=== PATIENT | female | born 1990 | race African-American/Black ===

== ENCOUNTER → 2023-09-09 11:41 | Outpatient (REF) | payer OTHER, SELFPAY ==
[2023-09-09 13:13] LABS: Rubella Positive
[2023-09-09 13:42] LABS: Hepatitis B Surface Antibody Positive
[2023-09-11 10:41] LABS: Quantiferon Mitogen minus NIL >10.00 IU/mL; Quantiferon NIL 0.02 IU/mL; Quantiferon TB Gold Plus Negative (Negative)
[2023-09-15 15:57] LABS: Mumps Virus IgG Positive; Rubeola (Measles) IgG Negative; Varicella Zoster IgG (VZV) Positive
== END ==
LOC: OHS 11:41
PROVIDERS: ATTENDING PHYSICIAN Nurse Practitioner Family
DX: Z23 Encounter for immunization (principal)
CPT/HCPCS: 36415; 86480; 86706; 86735; 86762; 86765; 86787

== ENCOUNTER 2024-07-24 12:59 | Emergency (ER) | payer OTHER, SELFPAY ==
[2024-07-24 13:40] VITALS: BP 113/76
[2024-07-24 14:05] LABS: % Basophils 0.7 % (0-2); % Eosinophils 0.1 % (0-6); % Immature Granulocytes 0.4 % (0-0.5); % Lymphocytes 9.6 % (20.5-51.1); % Monocytes 13.3 % (1.7-9.3); % Neutrophils 75.9 % (42.2-75.2); Absolute Basophils 0.1 10^3/uL (0-0.2); Absolute Lymphocytes 0.7 10^3/uL (1.2-3.4); Absolute Neutrophils 5.7 10^3/uL (1.4-6.5); Hematocrit 23.8 % (37.0-47.0); Hemoglobin 7.1 g/dL (12.0-16.0); Mean Corp Hgb Conc. 29.8 g/dL (33.0-37.0); Mean Corpuscular Hgb 17.5 pg (27.0-31.0); Mean Corpuscular Volume 58.8 fL (81.0-99.0); Mean Platelet Volume 9.3 fL (7.4-10.4); Nucleated Red Blood Cells % 0.3 %; Platelet Count 364 10^3/uL (130-400); Red Blood Cell Count 4.05 10^6/uL (4.20-5.40); Red Cell Dist. Width 20.7 % (11.5-14.5); Urine Albumin Trace (Neg - Trace); Urine Bilirubin Negative (Negative); Urine Character Slightly Cloudy (Clear); Urine Color Yellow; Urine Glucose Negative (Negative); Urine Ketone Trace (Negative); Urine Leukocyte 2+ (Negative); Urine Nitrite Negative (Negative); Urine Occult Blood Negative (Negative); Urine Urobilinogen Negative (Neg - 1+); White Blood Cell Count 7.5 10^3/uL (4.8-10.8)
[2024-07-24 14:15] LABS: Lactic Acid 1.3 mmol/L (0.7-2.0)
[2024-07-24 14:27] LABS: ALT (SGPT) 18 U/L (0-35); AST (SGOT) 27 U/L (14-36); Albumin 4.4 g/dl (3.5-5.0); Alkaline Phosphatase 65 U/L (38-126); Blood Urea Nitrogen 8 mg/dl (7-17); Calcium 8.8 mg/dl (8.4-10.2); Carbon Dioxide 16 mmol/L (22-30); Chloride 103 mmol/L (98-107); Glucose 114 mg/dl (70-99); Potassium 3.8 mmol/L (3.5-5.1); Sodium 132 mmol/L (135-145); Total Bilirubin 0.3 mg/dl (0.2-1.3); Total Protein 7.5 g/dl (6.3-8.2); eGFR > 60.00
[2024-07-24 14:29] LABS: COVID-19 Antigen Negative (Negative)
[2024-07-24 14:31] VITALS: BP 122/75
[2024-07-24 14:35] LABS: HCG, Serum Qualitative Screen Negative
[2024-07-24 14:38] LABS: Urine Mucus Few; Urine Squamous Cell >30 /LPF (Few)
[2024-07-24 14:39] LABS: Urine Amorphous Seen; Urine Red Blood Cell 0-2 /HPF (0-2)
[2024-07-24 14:41] LABS: Urine Bacteria Few (Negative)
[2024-07-24 14:52] LABS: APTT 28.8 Sec (23.4-35.0); INR 1.19; PT 15.4 Sec (11.4-14.6)
[2024-07-24 15:04] VITALS: BMI 25.4
--- NOTE | 2024-07-24 15:34 | ED.GENMED ---
History of Present Illness
General
Chief Complaint: Fever
Source: patient
Exam Limitations: none
Time Seen by Provider: 07/24/24 15:17
Nursing documentation reviewed up to this point in time: agreed with
History of Present Illness
History of Present Illness:
34-year-old female presents emergency room complaining of cough, back pain, headache and dysuria. This has been going on since yesterday. She notes she did get a flu shot. She took Tylenol this morning helped a little.
Past History
Past History
ED Past Medical History: Other (Uterine fibroids)
ED Past Surgical History: None
Social History
Tobacco: Non-smoker
Alcohol: None
Drug: None
Review of Systems
Review of Systems
Allergies reviewed?: Yes
All Other Systems: Not applicable
Constitutional: Reports fever
EENT: Reports no symptoms
Respiratory: Reports cough and trouble breathing
Cardiac: Reports no symptoms
ABD/GI: Reports vomiting
: Reports dysuria
Musculoskeletal: Reports back pain
Skin: Reports no symptoms
Neurological: Reports no symptoms
Endocrine: Reports no symptoms
Hematologic/Lymphatic: Reports no symptoms
Psychiatric: Reports no symptoms
Phy Exam
Physical Exam
Physical Exam:
Physical Exam
General: Fever 101.8
Neck: supple. no meningeal signs. normal posterior pharynx
Heart: s1/s2 tachycardia, no murmur. equal radial
pulses.
HEENT: Pupils equal round reactive to light, EOMI
Lungs: no acute respiratory distress. clear bilaterally, cough
Abdomen: normal bowel sounds. not tender. no CVAT
Neuro: alert and oriented. no focal neurological deficits cranial nerves II through XII intact
Skin: no rash
Psychiatric: well kept. interactive and cooperative
Extremities: no edema. no calf tenderness. negative homans. good distal pulses
Sepsis
Sepsis Screening
Sepsis Assessment: Sepsis Ruled Out
Sepsis Screen
Sepsis Screen: Sepsis Ruled Out
Date: 07/24/24
Time: 23:41
Course
Orders/Labs/Results
Orders:
Orders
07/24/24 13:44
Electrocardiogram (*1) Urgent
Reason for Study: Tachycardia
CR Chest - 2 Views Urgent
Comment:
Reason For Exam: cough, fever
07/24/24 13:45
EKG- Treatment ONCE
Test Result ONCE
07/24/24 13:52
COVID-19 Antigen Urgent
Source: Nasal Swab
Complete Blood Count/With Diff Urgent
Comprehensive Metabolic Panel Urgent
HCG, Serum Qualitative Screen Urgent
Lactic Acid Urgent
Urinalysis Reflex To Culture Urgent
Date Specimen was Collected: 07/24/24
Time Specimen was Collected: 13:44
Urine Microscopic Reflex Cult Urgent
Influenza A+B Rapid Molecular Urgent
CYNTHIA Source: Nasal Swab
Specimen Description:
Date Specimen was Collected: 07/24/24
Time Specimen was Collected: 13:44
Urine Culture Urgent
CYNTHIA Source: U
Specimen Description:
Date Specimen was Collected: 07/24/24
Time Specimen was Collected: 13:44
07/24/24 14:36
ABO2 Urgent
[employer] W[employer] Number:
Associate notified that ABO2 has been ordered: [id number]
Date: 07/24/24
Time: 14:54
Crimper Assembler ID: [id number]
INR [Prothrombin Time] Urgent
PTT Urgent
07/24/24 15:03
Type+Screen Urgent
BBK Wristband Number:
07/24/24 15:33
Ibuprofen [Motrin] 600 mg PO NOW STA
Ondansetron Orally Disint [Zofran Odt (Orally Disintegrating)] 4 mg PO NOW STA
07/24/24 15:43
Lactated Ringers [Lr] 1,000 ml IV BOLUS
Ondansetron Injectable [Zofran] 4 mg IV NOW STA
07/24/24 15:50
Urinalysis Reflex To Culture Urgent
Date Specimen was Collected: 07/24/24
Time Specimen was Collected: 15:44
07/24/24 16:56
Basic Metabolic Panel Urgent
07/24/24 18:08
Sodium Bicarbonate 650 mg PO NOW STA
Abnormal Lab Results
07/24/24 07/24/24 07/24/24
13:52 14:36 16:56
RBC 4.05 L 10^6/uL
(4.20-5.40)
Hgb 7.1 L g/dL
(12.0-16.0)
Hct 23.8 L %
(37.0-47.0)
MCV 58.8 L fL
(81.0-99.0)
MCH 17.5 L pg
(27.0-31.0)
MCHC 29.8 L g/dL
(33.0-37.0)
RDW 20.7 H %
(11.5-14.5)
Absolute Lymphs (auto) 0.7 L 10^3/uL
(1.2-3.4)
Absolute Monos (auto) 1.0 H 10^3/uL
(0.1-0.6)
Neutrophils % 75.9 H %
(42.2-75.2)
Lymphocytes % 9.6 L %
(20.5-51.1)
Monocytes % 13.3 H %
(1.7-9.3)
PT 15.4 H Sec
(11.4-14.6)
Sodium 132 L mmol/L 133 L mmol/L
(135-145) (135-145)
Carbon Dioxide 16 L mmol/L 15 L mmol/L
(22-30) (22-30)
BUN 6 L mg/dl
(7-17)
Glucose 114 H mg/dl
(70-99)
Urine Ketones Trace A
(Negative)
Leukocyte Esterase Rfl 2+ A
(Negative)
Urine Bacteria (Reflex) Few A
(Negative)
07/24/24 13:52
07/24/24 16:56
Vital Signs
Initial and Last Documented VS:
Initial Vital Signs
Temp Pulse Resp BP Pulse Ox
102.7 F H 141 16 113/76 100
07/24/24 13:40 07/24/24 13:40 07/24/24 13:40 07/24/24 13:40 07/24/24 13:40
Last Documented Vital Signs
Temp Pulse Resp BP Pulse Ox
100.5 F H 102 18 125/78 100
07/24/24 15:19 07/24/24 18:15 07/24/24 18:15 07/24/24 18:00 07/24/24 18:15
MDM/Problems Addressed
Differential Diagnosis Includes:
Metabolic acidosis, anemia, flu
MDM/Problems Addressed:
34-year-old female with influenza A, mild metabolic acidosis, iron deficiency anemia. Patient treated with sodium bicarbonate, will follow-up with primary care for repeat labs, blood transfusion not indicated at this time
Chronic conditions affecting care: Other (Anemia)
*Radiology
Radiology exam reviewed: radiology read reviewed (Chest x-ray no acute findings)
*Pulse Oximetry
Patient hypoxic: no
*EKG
Interpreted by ED Provider?: Yes
EKG Intrepretation Date: 07/24/24
EKG Intrepretation Time: 13:58
Interpretation: abnormal
Comparison EKG: no comparison EKG present
Heart Rate: 124
Rate: tachycardiac
Rhythm: sinus tachycardia
[place]: normal axis
Interval: normal interval
QRS Pattern: normal QRS
Ischemia: no ischemia
*Tempering Oven Operator Interpretation
Rate: tachycardiac
Interpretation: abnormal
Heart Rate: 125
Rhythm: sinus tachycardia
*Critical Care Note
Total Time (30-74mins, 75-104mins- exclusive of procedures): Not Applicable
Data Reviewed
Review of Other/Old Records Reveals: Labs (Patient's prior hemoglobin 8.1)
Source: patient
Patient Management
Social determinants of health affecting care: Living situation and Strong social support
Discussion with other providers: [employer] Loading Machine Operator (Discussed results of metabolic panel with nephrology, who recommended sodium bicarbonate. Dr. Pereyra)
Escalation/DeEscalation of care consider admission/obs:
admit not indicated
ED Attending Note
-
Portions of this chart may have been created with voice recognition software.� Occasional wrong word or��sound alike� substitutions may have occurred due to the inherent limitations of voice recognition software.
Discharge Plan
Departure
Patient Disposition: Home (Routine Discharge)
Date of Disposition: 07/24/24
Time of Disposition: 18:09
Patient with high blood pressure during this ER visit?: Yes
Condition: Good
Discharge Problem:
Influenza A, Metabolic acidosis, Iron deficiency anemia
Discharge Problem:
(Ruled Out): COVID-19
Instructions: Anemia caused by low iron, Flu in adults - ED discharge instructions, BLOOD PRESSURE
Prescriptions:
New
sodium bicarbonate 650 mg tablet
650 mg PO BID Qty: 10 0RF
Referrals:
Talita Pelletier MD [Active] - Call in 1-3 days for appt
Glendy Lamas CRNP [Family Provider] - Follow up in 2-3 days (Get repeat CBC and basic metabolic panel in 2-3 days)
Interventions
Interventions:
*Risk Screen - Suicide Last Done: 07/24/24 15:09
*General Assessment Last Done: 07/24/24 15:09
*Neglect/Abuse Screening Last Done: 07/24/24 15:09
ED- Fall Risk Assessment Last Done: 07/24/24 18:33
*Nursing Disposition Last Done: 07/24/24 18:33
ED- Neurological Assessment Last Done: 07/24/24 15:09
ED-Skin Assessment Last Done: 07/24/24 15:09
Discharge Date and Time
Discharge Date/Time: 07/24/24 18:36
Print Language: CITIZEN OF [place]
[2024-07-24] MEDS: MOTRIN 600 MG PO (15:53)
[2024-07-24] MEDS: ZOFRAN 4 MG IV (15:53)
[2024-07-24] MEDS: LR 1000 IV (15:54)
[2024-07-24 16:05] LABS: Urine Albumin Negative (Neg - Trace); Urine Bilirubin Negative (Negative); Urine Character Clear (Clear); Urine Color Straw; Urine Glucose Negative (Negative); Urine Ketone Negative (Negative); Urine Leukocyte Negative (Negative); Urine Nitrite Negative (Negative); Urine Occult Blood Negative (Negative); Urine Specific Gravity 1.005 (<1.030); Urine Urobilinogen Negative (Neg - 1+)
[2024-07-24 17:19] VITALS: BP 128/76
[2024-07-24 17:29] LABS: Blood Urea Nitrogen 6 mg/dl (7-17); Calcium 8.5 mg/dl (8.4-10.2); Carbon Dioxide 15 mmol/L (22-30); Chloride 106 mmol/L (98-107); Estimated Creatinine Clearance 111 ml/min; Glucose 95 mg/dl (70-99); Potassium 3.8 mmol/L (3.5-5.1); Sodium 133 mmol/L (135-145); eGFR > 60.00
[2024-07-24 18:00] VITALS: BP 125/78
[2024-07-24] MEDS: SODIUM BICARBONATE 650 MG PO (18:19)
== END 2024-07-24 18:36 | disposition home or self-care (01) ==
LOC: EMR 12:59
PROVIDERS: Emergency Medicine; EMERGENCY PHYSICIAN Emergency Medicine; FAMILY PHYSICIAN Nurse Practitioner Primary Care
DX: J10.1 Influenza due to other identified influenza virus with other respiratory manifestations (principal); E87.20 Acidosis, unspecified; D50.9 Iron deficiency anemia, unspecified
CPT/HCPCS: 99283; 96374; 96361; 71046; 80048; 80053; 81003; 81015; 83605; 84703; 85025; 85610; 85730; 86850; 86900; 86901; 87086; 87502; 87811; 93005

== ENCOUNTER → 2024-08-13 11:01 | Outpatient (REF) | payer OTHER, SELFPAY ==
[2024-08-13 10:54] LABS: % Basophils 0.5 % (0-2); % Immature Granulocytes 0.2 % (0-0.5); % Lymphocytes 26.9 % (20.5-51.1); % Monocytes 8.1 % (1.7-9.3); % Neutrophils 63.3 % (42.2-75.2); Absolute Eosinophils 0.1 10^3/uL (0-0.7); Absolute Lymphocytes 1.6 10^3/uL (1.2-3.4); Absolute Monocytes 0.5 10^3/uL (0.1-0.6); Absolute Neutrophils 3.9 10^3/uL (1.4-6.5); Hematocrit 26.2 % (37.0-47.0); Hemoglobin 7.7 g/dL (12.0-16.0); Mean Corp Hgb Conc. 29.4 g/dL (33.0-37.0); Mean Corpuscular Hgb 18.9 pg (27.0-31.0); Mean Corpuscular Volume 64.2 fL (81.0-99.0); Platelet Count 508 10^3/uL (130-400); Red Blood Cell Count 4.08 10^6/uL (4.20-5.40); Red Cell Dist. Width 28.2 % (11.5-14.5); White Blood Cell Count 6.1 10^3/uL (4.8-10.8)
== END ==
LOC: OIDL 11:01
PROVIDERS: ATTENDING PHYSICIAN Internal Medicine Hematology & Oncology
DX: D50.9 Iron deficiency anemia, unspecified (principal)
CPT/HCPCS: 85025

== ENCOUNTER → 2024-08-20 13:57 | Outpatient (REF) | payer OTHER, SELFPAY ==
[2024-08-20 11:18] LABS: % Basophils 0.6 % (0-2); % Eosinophils 0.6 % (0-6); % Immature Granulocytes 0.2 % (0-0.5); % Lymphocytes 24.3 % (20.5-51.1); % Monocytes 7.4 % (1.7-9.3); % Neutrophils 66.9 % (42.2-75.2); Absolute Lymphocytes 1.3 10^3/uL (1.2-3.4); Absolute Monocytes 0.4 10^3/uL (0.1-0.6); Absolute Neutrophils 3.5 10^3/uL (1.4-6.5); Hematocrit 29.4 % (37.0-47.0); Hemoglobin 8.8 g/dL (12.0-16.0); Mean Corp Hgb Conc. 29.9 g/dL (33.0-37.0); Mean Corpuscular Hgb 19.9 pg (27.0-31.0); Mean Corpuscular Volume 66.5 fL (81.0-99.0); Platelet Count 437 10^3/uL (130-400); Red Blood Cell Count 4.42 10^6/uL (4.20-5.40); Red Cell Dist. Width 30.4 % (11.5-14.5); White Blood Cell Count 5.3 10^3/uL (4.8-10.8)
== END ==
LOC: OIDL 13:57
PROVIDERS: ATTENDING PHYSICIAN Internal Medicine Hematology & Oncology
DX: D50.9 Iron deficiency anemia, unspecified (principal)
CPT/HCPCS: 85025

== ENCOUNTER → 2024-09-03 12:05 | Outpatient (REF) | payer OTHER, SELFPAY ==
[2024-09-03 11:40] LABS: % Basophils 0.8 % (0-2); % Eosinophils 0.4 % (0-6); % Lymphocytes 34.7 % (20.5-51.1); % Monocytes 7.8 % (1.7-9.3); % Neutrophils 56.3 % (42.2-75.2); Absolute Lymphocytes 1.6 10^3/uL (1.2-3.4); Absolute Monocytes 0.4 10^3/uL (0.1-0.6); Absolute Neutrophils 2.7 10^3/uL (1.4-6.5); Hematocrit 32.3 % (37.0-47.0); Mean Platelet Volume 9.6 fL (7.4-10.4); Platelet Count 353 10^3/uL (130-400); Red Blood Cell Count 4.55 10^6/uL (4.20-5.40); White Blood Cell Count 4.7 10^3/uL (4.8-10.8)
== END ==
LOC: OIDL 12:05
PROVIDERS: ATTENDING PHYSICIAN Internal Medicine Hematology & Oncology
DX: D50.9 Iron deficiency anemia, unspecified (principal)
CPT/HCPCS: 85025

== ENCOUNTER → 2024-11-14 14:18 | Outpatient (REF) | payer OTHER, SELFPAY ==
[2024-11-14 09:20] LABS: % Basophils 0.8 % (0-2); % Eosinophils 1.8 % (0-6); % Immature Granulocytes 0.2 % (0-0.5); % Lymphocytes 33.3 % (20.5-51.1); % Monocytes 8.1 % (1.7-9.3); % Neutrophils 55.8 % (42.2-75.2); Absolute Eosinophils 0.1 10^3/uL (0-0.7); Absolute Lymphocytes 1.7 10^3/uL (1.2-3.4); Absolute Monocytes 0.4 10^3/uL (0.1-0.6); Absolute Neutrophils 2.8 10^3/uL (1.4-6.5); Hematocrit 28.5 % (37.0-47.0); Hemoglobin 9.3 g/dL (12.0-16.0); Mean Corp Hgb Conc. 32.6 g/dL (33.0-37.0); Mean Corpuscular Hgb 25.2 pg (27.0-31.0); Mean Corpuscular Volume 77.2 fL (81.0-99.0); Mean Platelet Volume 9.5 fL (7.4-10.4); Platelet Count 324 10^3/uL (130-400); Red Blood Cell Count 3.69 10^6/uL (4.20-5.40); Red Cell Dist. Width 17.8 % (11.5-14.5); White Blood Cell Count 5.1 10^3/uL (4.8-10.8)
== END ==
LOC: OIDL 14:18
PROVIDERS: ATTENDING PHYSICIAN Nurse Practitioner Adult Health
DX: D50.9 Iron deficiency anemia, unspecified (principal)
CPT/HCPCS: 85025

== ENCOUNTER → 2024-12-03 16:07 | Outpatient (REF) | payer OTHER, SELFPAY ==
[2024-12-03 16:19] LABS: % Basophils 1.1 % (0-2); % Eosinophils 1.1 % (0-6); % Immature Granulocytes 0.4 % (0-0.5); % Monocytes 10.3 % (1.7-9.3); % Neutrophils 51.1 % (42.2-75.2); Absolute Basophils 0.1 10^3/uL (0-0.2); Absolute Eosinophils 0.1 10^3/uL (0-0.7); Absolute Lymphocytes 1.9 10^3/uL (1.2-3.4); Absolute Monocytes 0.6 10^3/uL (0.1-0.6); Absolute Neutrophils 2.7 10^3/uL (1.4-6.5); Hematocrit 34.1 % (37.0-47.0); Hemoglobin 11.4 g/dL (12.0-16.0); Mean Corp Hgb Conc. 33.4 g/dL (33.0-37.0); Mean Corpuscular Hgb 26.6 pg (27.0-31.0); Mean Corpuscular Volume 79.7 fL (81.0-99.0); Mean Platelet Volume 10.9 fL (7.4-10.4); Nucleated Red Blood Cells % 0 %; Platelet Count 329 10^3/uL (130-400); Red Blood Cell Count 4.28 10^6/uL (4.20-5.40); Red Cell Dist. Width 19.6 % (11.5-14.5); White Blood Cell Count 5.4 10^3/uL (4.8-10.8)
== END ==
LOC: OIDL 16:07
PROVIDERS: ATTENDING PHYSICIAN Nurse Practitioner Adult Health
DX: D50.9 Iron deficiency anemia, unspecified (principal)
CPT/HCPCS: 85025

== ENCOUNTER 2025-03-29 09:54 | Emergency (ER) | payer OTHER, SELFPAY ==
[2025-03-29 09:56] VITALS: BP 143/96
--- NOTE | 2025-03-29 10:13 | ED.GENMED ---
History of Present Illness
General
Chief Complaint: Vaginal Bleeding
Source: patient
Exam Limitations: none
Time Seen by Provider: 03/29/25 10:11
Nursing documentation reviewed up to this point in time: agreed with
History of Present Illness
History of Present Illness:
35-year-old female with history of iron deficiency anemia with infusions, of uterine fibroids is here for persistent vaginal bleeding. She states her period started on 03/14 and seem to be normal, it slowed significantly by 03/19 then last night she
developed significant low back and lower abdominal aching and when she woke up today and stood she states blood with clots poured out of her. She states she is still bleeding and she has filled 3 pads since 530 this morning. She took Tylenol 1500
mg which helped with the cramping.
She sees [facility] [employer] [facility] [facility] doctor at [facility] and had an ultrasound on 02/28 which showed multiple fibroids. For her iron deficiency anemia she has been referred to Dr. Talita Pelletier hematology.
She denies fever or chills. She denies feeling lightheaded or dizzy. She denies SOB or CP. She denies N/V/D/C
Past History
Past History
ED Past Medical History: Other (Uterine fibroids)
ED Past Surgical History: None
Social History
Tobacco: Non-smoker
Alcohol: Occasional
Drug: None
Living: with roommate
Employment: Employed
Review of Systems
Review of Systems
Allergies reviewed?: Yes
All Other Systems: ROS reviewed and negative except as documented in HPI and ROS
Phy Exam
Physical Exam
Physical Exam:
GENERAL: No acute distress. A&Ox3.
CONSTITUTIONAL: Afebrile.
EYES: clear, conjunctivae normal
ENMT: moist mucus membranes, Pharynx nl
RESPIRATORY: Regular respirations, nonlabored, lungs clear.
CARDIOVASCULAR: Regular rate and rhythm, no murmurs, no rubs.
GI: Soft, normal BS, tender to palpate across lower abdomen.
: 1 blood soaked pad observed and changed since arrival
MUSCULOSKELETAL: Moves with ease. Well perfused.
SKIN: Warm, dry, normal
PSYCH: Normal mood and affect. Well kept, interactive and appropriate
NEUROLOGIC: Awake, alert and oriented. No focal neurological deficits
Course
Orders/Labs/Results
Orders:
Orders
03/29/25 10:12
Test Result ONCE
US Pelvis W Transvag Combined Urgent
Comment:
Reason For Exam: heavy bleeding
03/29/25 10:49
Complete Blood Count/With Diff Urgent
Comprehensive Metabolic Panel Urgent
HCG, Serum Qualitative Screen Urgent
Urinalysis Reflex To Culture Urgent
Date Specimen was Collected: 03/29/25
Time Specimen was Collected: 10:39
Urine Microscopic Reflex Cult Urgent
03/29/25 10:52
0.9% Sodium Chloride 500 ml [Nss] 500 ml IV BOLUS
Abnormal Lab Results
03/29/25
10:49
RBC 4.19 L 10^6/uL
(4.20-5.40)
Hgb 10.7 L g/dL
(12.0-16.0)
Hct 32.6 L %
(37.0-47.0)
MCV 77.8 L fL
(81.0-99.0)
MCH 25.5 L pg
(27.0-31.0)
MCHC 32.8 L g/dL
(33.0-37.0)
RDW 15.1 H %
(11.5-14.5)
MPV 10.6 H fL
(7.4-10.4)
Chloride 110 H mmol/L
(98-107)
Carbon Dioxide 20 L mmol/L
(22-30)
Glucose 102 H mg/dl
(70-99)
Ur Occult Blood Reflex 4+ A
(Negative)
Urine RBC 40-50 A /HPF
(0-2)
Urine Bacteria (Reflex) Few A
(Negative)
03/29/25 10:49
03/29/25 10:49
Vital Signs
Initial and Last Documented VS:
Initial Vital Signs
Temp Pulse Resp BP Pulse Ox
98.1 F 90 18 143/96 100
03/29/25 09:56 03/29/25 09:56 03/29/25 09:56 03/29/25 09:56 03/29/25 09:56
Last Documented Vital Signs
Temp Pulse Resp BP Pulse Ox
98.1 F 75 16 119/91 100
03/29/25 09:56 03/29/25 11:03 03/29/25 11:03 03/29/25 16:01 03/29/25 16:01
MDM/Problems Addressed
Differential Diagnosis Includes:
UTI, uterine fibroids, bleeding in
MDM/Problems Addressed:
35-year-old female with history of iron deficiency anemia with infusions, of uterine fibroids is here for persistent vaginal bleeding. She states her period started on 03/14 and seem to be normal, it slowed significantly by 03/19 then last night she
developed significant low back and lower abdominal aching and when she woke up today and stood she states blood with clots poured out of her. She states she is still bleeding and she has filled 3 pads since 530 this morning. She took Tylenol 1500
mg which helped with the cramping.
She sees [employer] [facility] doctor at [facility] and had an ultrasound on 02/28 which showed multiple fibroids. For her iron deficiency anemia she has been referred to Dr. Talita Pelletier hematology.
She denies fever or chills. She denies feeling lightheaded or dizzy. She denies SOB or CP. She denies N/V/D/C
Patient also states that intermittently she feels a lot of pressure and urgency to urinate. She is concerned about 'that whole area down there,' is requesting a regular ultrasound, not just an intravaginal 1 which she states is what she had
previously.
She has an appointment with her [employer] doctor in 4 days.
CBC with no clinically significant abnormality, at her baseline chronic anemia CMP
With no clinically significant abnormality
Urine with no sign of infection hCG negative
3:00 PM:
Ultrasound pelvis with intravaginal, radiology report read: IMPRESSION: 2 uterine fibroids are present as described.
Endometrial stripe measures 9.8 mm, with no focal abnormality.
Normal appearance of both ovaries.
Consulted [employer] Dr. Ocampo who agrees with Kayleigh and f/u with her own [employer] next week.
*Pulse Oximetry
SaO2: 100
Oxygen Mode of Delivery: Room air
Patient hypoxic: not evaluated
*Critical Care Note
Total Time (30-74mins, 75-104mins- exclusive of procedures): Not Applicable
ED Attending Note
-
Portions of this chart may have been created with voice recognition software.� Occasional wrong word or��sound alike� substitutions may have occurred due to the inherent limitations of voice recognition software.
Discharge Plan
Departure
Patient Disposition: Home (Routine Discharge)
Date of Disposition: 03/29/25
Time of Disposition: 15:51
Patient with high blood pressure during this ER visit?: No
Condition: Good
Discharge Problem:
Abnormal vaginal bleeding
Instructions: Uterine fibroids, Heavy Periods (DC)
Prescriptions:
New
tranexamic acid 650 mg tablet
1,300 mg PO TID 5 Days Qty: 30 0RF
No Action
sodium bicarbonate 650 mg tablet
650 mg PO BID Qty: 10 0RF
Referrals:
Your [facility] [facility] doctor at [facility] [Other] - Call in 1-3 days for appt
Bejnamini,EUGENIE Greenberg [Family Provider]
Activity Restrictions/Additional Instructions:
As we discussed, your ultrasound shows 2 uterine fibroids, your ovaries appear normal
I spoke with our [employer] doctor who states you can take the Lysteda and follow-up with your [employer] doctor next week
Interventions
Interventions:
*Risk Screen - Suicide Last Done: 03/29/25 09:56
*General Assessment Last Done: 03/29/25 09:56
*Neglect/Abuse Screening Last Done: 03/29/25 09:56
*ED- Fall Risk Assessment Last Done: 03/29/25 11:03
*ED COVID-19 Vaccine History Last Done: 03/29/25 10:55
*ED Influenza Vaccine History Last Done: 03/29/25 10:55
*Nursing Disposition Last Done: 03/29/25 16:27
ED-Female Genitourinary Assessment Last Done: 03/29/25 11:03
Discharge Date and Time
Discharge Date/Time: 03/29/25 16:28
Print Language: SWEDISH
[2025-03-29 10:41] VITALS: BMI 19.5
[2025-03-29] MEDS: NSS 500 IV (11:01)
[2025-03-29 11:02] LABS: Hematocrit 32.6 % (37.0-47.0); Hemoglobin 10.7 g/dL (12.0-16.0); Mean Corp Hgb Conc. 32.8 g/dL (33.0-37.0); Mean Corpuscular Volume 77.8 fL (81.0-99.0); Nucleated Red Blood Cells % 0 %; Platelet Count 376 10^3/uL (130-400); Red Cell Dist. Width 15.1 % (11.5-14.5)
[2025-03-29 11:03] VITALS: BP 129/88
[2025-03-29 11:26] LABS: HCG, Serum Qualitative Screen Negative
[2025-03-29 11:27] LABS: Urine Character Clear (Clear)
[2025-03-29 11:35] LABS: ALT (SGPT) 18 U/L (0-35); AST (SGOT) 21 U/L (14-36); Albumin 4.8 g/dl (3.5-5.0); Alkaline Phosphatase 88 U/L (38-126); Blood Urea Nitrogen 13 mg/dl (7-17); Calcium 9.7 mg/dl (8.4-10.2); Carbon Dioxide 20 mmol/L (22-30); Chloride 110 mmol/L (98-107); Estimated Creatinine Clearance 90 ml/min; Glucose 102 mg/dl (70-99); Potassium 4.3 mmol/L (3.5-5.1); Sodium 140 mmol/L (135-145); Total Protein 8.1 g/dl (6.3-8.2); eGFR > 60.00
[2025-03-29 11:54] LABS: Urine Red Blood Cell 40-50 /HPF (0-2)
[2025-03-29 11:55] LABS: Urine White Cell 0-2 /HPF (0-5)
[2025-03-29 14:32] VITALS: BP 127/86
[2025-03-29 15:00] VITALS: BP 114/85
[2025-03-29 16:01] VITALS: BP 119/91
== END 2025-03-29 16:28 | disposition home or self-care (01) ==
LOC: EMR 09:54
PROVIDERS: Registered Nurse; EMERGENCY PHYSICIAN Emergency Medicine; FAMILY PHYSICIAN Nurse Practitioner Primary Care
DX: N93.9 Abnormal uterine and vaginal bleeding, unspecified (principal); D50.9 Iron deficiency anemia, unspecified; D25.9 Leiomyoma of uterus, unspecified; Z86.018 Personal history of other benign neoplasm
CPT/HCPCS: 99284; 96360; 76830; 76856; 80053; 81003; 81015; 84703; 85025